=== PATIENT | male | born 1970 | race Caucasian/White ===

== ENCOUNTER 2017-10-13 08:39 | Emergency (ER) | payer MEDICAID ==
[~2017-10-13] VITALS: Ht 165.1 cm; Wt 72.7 kg
[2017-10-13 10:50] VITALS: BP 123/90
== END 2017-10-13 11:30 | disposition home or self-care (01) ==
LOC: EMS 08:41
DX: S52.591A Other fractures of lower end of right radius, initial encounter for closed fracture (principal); W19.XXXA Unspecified fall, initial encounter; Y93.89 Activity, other specified; Y92.89 Other specified places as the place of occurrence of the external cause; Y99.8 Other external cause status
CPT/HCPCS: 99284

== ENCOUNTER 2017-10-18 10:25 | Emergency (ER) | payer MEDICAID ==
[~2017-10-18] VITALS: Ht 167.6 cm; Wt 68.2 kg
[2017-10-18] MEDS ORDERED: IBUP-2071 PO (10:31)
[2017-10-18 12:04] VITALS: BP 147/88
== END 2017-10-18 12:15 | disposition home or self-care (01) ==
LOC: EMS 10:27
DX: S52.501A Unspecified fracture of the lower end of right radius, initial encounter for closed fracture (principal); W18.39XA Other fall on same level, initial encounter; Y93.89 Activity, other specified; Y92.89 Other specified places as the place of occurrence of the external cause; Y99.8 Other external cause status
CPT/HCPCS: 99284

== ENCOUNTER 2022-05-03 15:22 | Emergency (ER) | payer MEDICAID ==
[~2022-05-03] VITALS: Ht 165.1 cm; Wt 68.2 kg
[~2022-05-03 15:22] MED LIST: IBUP-2071 PO
[2022-05-03] MEDS ORDERED: IBUPROFEN 600 MG TABLET PO ONE (16:45)
[2022-05-03 19:00] VITALS: BP 148/97
== END 2022-05-03 18:59 | disposition home or self-care (01) ==
LOC: EMS 16:24
DX: S92.332A Displaced fracture of third metatarsal bone, left foot, initial encounter for closed fracture (principal); X58.XXXA Exposure to other specified factors, initial encounter; Y93.89 Activity, other specified; Y92.89 Other specified places as the place of occurrence of the external cause; Y99.8 Other external cause status
CPT/HCPCS: 29515; 99284